=== PATIENT | female | born 2000 | race Two or more races ===

== ENCOUNTER 2024-10-09 13:22 | Emergency (ER) | payer OTHER ==
[~2024-10-09] VITALS: Ht 170.2 cm; Wt 49.9 kg
[2024-10-09 13:41] VITALS: BP 120/81; O2SAT 99
[2024-10-09] MEDS ORDERED: PROTONIX40 MG PO (13:43)
[2024-10-09] MEDS ORDERED: AMBIEN5 MG PO (13:44)
[2024-10-09 17:28] LABS: PH,URINE 6.5 (5.0-8.0); URINE APPEARANCE Clear; URINE BILIRRUBIN Negative (NEGATIVE); URINE BLOOD Negative; URINE COLOR Yellow; URINE GLUCOSE Negative (NEGATIVE); URINE KETONE Negative (NEGATIVE); URINE LEUKOCYTE Negative; URINE NITRATE Negative; URINE PROTEIN Negative (NEGATIVE)
[2024-10-09 17:29] LABS: URINE BACTERIA 100.3 uL (0.0-1933); URINE WBC 6.7 uL (0.0-23.2)
[2024-10-09 17:35] LABS: BASO % 0.2 % (0.1-1.2); EOS # 0.08 (0.04-0.54); EOS % 1.5 % (0.7-7.0); HEMATOCRIT 32.9 % (34.1-44.9); LYMPH # 1.91 (1.18-3.74); LYMPH % 36.5 % (19.3-53.1); MEAN CORPUSCULAR HEMOGLOBIN 28.4 pg (25.6-32.2); MONO # 0.46 (0.24-0.82); MONO % 8.8 % (4.7-12.5); NEUT # 2.76 (1.56-6.13); NEUT % 52.8 % (34.0-71.1); PLATELET COUNT 167 K/uL (163-369); RED BLOOD COUNT 3.87 M/uL (3.93-5.22); RED CELL DISTRIBUTION WIDTH 12.3 % (11.6-14.4)
[2024-10-09 17:52] LABS: PARTIAL THROMBOPLASTIN TIME 25.3 SECONDS (22.0-34.0); PROTHROMBIN TIME 10.9 SECONDS (9.0-11.5)
[2024-10-09 18:00] LABS: ALBUMIN 3.7 gm/dL (3.4-5.0); ALKALINE PHOSPHATASE 78 U/L (50-136); ALT/SGPT 17 U/L (12-78); ANION GAP 10 (10.0-20.0); AST/SGOT 14 U/L (15-37); BILIRUBIN TOTAL 0.28 mg/dL (0.3-1.2); BILIRUBIN,CONJUGATED < 0.10 mg/dL (0.0-0.2); BILIRUBIN,UNCONJUGATED 0.18 mg/dL (0.0-0.6); BLOOD UREA NITROGEN 8 mg/dL (7-18); BUN CREA RATIO 12 (7.0-25.0); CARBON DIOXIDE 26 mEq/L (21-32); CHLORIDE 109 mmol/L (98-107); CREATININE SERUM 0.66 mg/dL (0.55-1.02); GFR 110.98; GLUCOSE FASTING 95 mg/dL (65-100); OSMOLALITY SERUM 279 MOSM/KG (275-295); SODIUM 141 mmol/L (136-145); TOTAL PROTEIN 7.7 gm/dL (6.4-8.2)
== END 2024-10-09 21:41 | disposition home or self-care (01) ==
LOC: ER 14:32
PROVIDERS: General Practice
DX: R42 Dizziness and giddiness (principal)